=== PATIENT | female | born 1955 | race Caucasian/White ===

== ENCOUNTER 2016-06-09 01:22 | Inpatient (IN) | payer OTHER ==
[~2016-06-09] VITALS: Ht 157.5 cm; Wt 91.9 kg
[~2016-06-09 01:22] MED LIST: CARA1SUS3 PO; FOSI40TA PO; GLUCTAB PO; LANTUSP SQ; LEVO75TA3 PO; METO10TA PO; PROM25TA5 PO; ZOFR4TAB3 PO; ZOFR8TAB PO
[2016-06-09 01:24] VITALS: BP 142/73; PULSE 75; RESP 16; TEMP 97; O2SAT 96
[2016-06-09] MEDS ORDERED: LEVO75TA3 PO (01:31)
[2016-06-09] MEDS ORDERED: MULT-120 PO (01:31)
--- NOTE | 2016-06-09 02:33 | PD ---
Physical Exam Date Seen by Provider: Jun 09, 2016 Time Seen by Provider: 02:31 Narrative Patient is a transfer from [facility], 60-year-old with history of previous gastric bypass, has been having vomiting, abdominal pain, ventral hernia, found to have a small bowel obstruction with concern for possible ventral hernia strangulation. The facility had talked to Dr. Silverman who accepts patient for transfer at patient's request. Case was discussed with Dr. Silverman and he states that he will accept the patient for admission here in the hospital with possible plans for OR in the a.m. Vital signs are stable in the ER. Patient has an NG tube in place. She appears fairly comfortable currently. Data Data Last Documented VS Vital Signs Date Time Temp Pulse Resp B/P Pulse Ox O2 Delivery O2 Flow Rate FiO2 06/09/16 01:24 97.0 75 16 142/73 96 Orders Admit Order (Ed Use Only) (06/09/16 02:29) [facility] Medical Record Reviewed: Yes Supervised Visit with OCLIN: No Diagnosis Primary Impression: Small bowel obstruction Admitting Information Admitting Physician Requests: Admit Oksana Hart MD Jun 09, 2016 02:33
[2016-06-09] MEDS ORDERED: BUPIVACAINE/EPINEPHRINE 0.25% PF 30 ML VIAL ONE (05:07)
[2016-06-09 05:50] VITALS: BP 143/85; PULSE 70; RESP 16; TEMP 97.7; O2SAT 97
[2016-06-09] MEDS ORDERED: ceFAZolin INJ 1,000 MG VIAL IV ONE (06:31)
[2016-06-09] MEDS ORDERED: fentaNYL CITRATE 250 MCG/5 ML AMP ONE ×2 (07:03→07:08)
[2016-06-09] MEDS ORDERED: MIDAZOLAM HCL 2 MG/2 ML VIAL ONE (07:07)
[2016-06-09] MEDS ORDERED: SODIUM CHLORIDE 0.9% FLUSH 5 ML FLUSH IVF PRN (07:45)
[2016-06-09] MEDS ORDERED: Post-op Orders (for Pharmacy) MISC XX ONE (07:45)
[2016-06-09] MEDS ORDERED: METOCLOPRAMIDE HCL 10 MG/2 ML VIAL IVS PRN (07:45)
[2016-06-09] MEDS ORDERED: *MEPERIDINE 25 MG INJ VIAL PERIprocedural Use ONLY ONE (08:14)
[2016-06-09] MEDS ORDERED: DO NOT ADM ANY ANTICOAGULANT DRUGS XX PRN (08:30)
[2016-06-09] MEDS: SODIUM CHLOR 0.9% 1000 ML INJ 1,000 ML IV SCH ×2 (08:30→18:20)
[2016-06-09] MEDS ORDERED: *morphine SULFATE 8 MG/ML PERIprocedure ONLY ONE ×2 (08:37→10:00)
[2016-06-09] MEDS: SODIUM CHLORIDE 0.9% FLUSH 5 ML FLUSH IVF SCH ×2 (08:50→21:00)
[2016-06-09] MEDS: metroNIDAZOLE 500 MG INJ 100 ML IV SCH ×2 (09:24→18:20)
[2016-06-09] MEDS: HYDROmorphone HCL PF 1 MG/ML VIAL IV PUSH PRN ×3 (09:24→18:19)
[2016-06-09] MEDS: ONDANSETRON HCL 4 MG/2 ML VIAL IV PRN ×3 (11:29→19:41)
[2016-06-09 12:28] VITALS: BP 127/73; PULSE 80; RESP 20; TEMP 97.7; O2SAT 98
[2016-06-09] MEDS ORDERED: ONDANSETRON HCL 4 MG/2 ML VIAL IV PUSH ONE (15:14)
[2016-06-09] MEDS ORDERED: PROPOFOL 200 MG/20 ML AMP IV ONE (15:14)
[2016-06-09] MEDS ORDERED: PHENYLEPH/NS 1000 MCG/10 ML SYR IV ONE (15:14)
[2016-06-09] MEDS: ACETAMINOPHEN/HYDROcodone 325 MG/5 MG TAB PO PRN ×2 (15:30→21:28)
[2016-06-09 15:39] VITALS: O2SAT 98
[2016-06-09 16:00] VITALS: BP 108/52; PULSE 74; RESP 18; TEMP 98.2; O2SAT 91
[2016-06-09 20:00] VITALS: BP 120/66; PULSE 69; RESP 18; TEMP 96; O2SAT 92
[2016-06-10] VITALS (8 sets, daily range): BP systolic 91–145; BP diastolic 53–80; PULSE 64–83; RESP 15–18; TEMP 96–98.7; O2SAT 92–98
[2016-06-10] MEDS: metroNIDAZOLE 500 MG INJ 100 ML IV SCH (01:43)
[2016-06-10] MEDS: SODIUM CHLOR 0.9% 1000 ML INJ 1,000 ML IV SCH ×3 (06:05→20:30)
[2016-06-10] MEDS: ENOXAPARIN SODIUM 40 MG/0.4 ML SYRINGE SQ SCH (06:06)
[2016-06-10] MEDS: ACETAMINOPHEN/HYDROcodone 325 MG/5 MG TAB PO PRN ×4 (06:06→20:37)
[2016-06-10] MEDS: SODIUM CHLORIDE 0.9% FLUSH 5 ML FLUSH IVF SCH ×2 (09:00→20:30)
[2016-06-10] MEDS: HYDROmorphone HCL PF 1 MG/ML VIAL IV PUSH PRN ×2 (10:25→14:36)
[2016-06-10] MEDS: LEVOTHYROXINE SODIUM 75 MCG TAB PO SCH (14:30)
[2016-06-11] VITALS (7 sets, daily range): BP systolic 124–156; BP diastolic 62–76; PULSE 63–76; RESP 17–20; TEMP 96.9–98.8; O2SAT 95–98
[2016-06-11] MEDS: LEVOTHYROXINE SODIUM 75 MCG TAB PO SCH (05:33)
[2016-06-11] MEDS: ENOXAPARIN SODIUM 40 MG/0.4 ML SYRINGE SQ SCH (05:33)
[2016-06-11] MEDS: ACETAMINOPHEN/HYDROcodone 325 MG/5 MG TAB PO PRN ×4 (05:34→21:24)
[2016-06-11] MEDS: SODIUM CHLORIDE 0.9% FLUSH 5 ML FLUSH IVF SCH ×2 (09:00→19:50)
[2016-06-11] MEDS: SODIUM CHLOR 0.9% 1000 ML INJ 1,000 ML IV SCH ×2 (09:42→19:42)
--- NOTE | 2016-06-11 22:37 | HHI.PR ---
Subjective Subjective Notes pt comfortable no cp no sob no N/V Objective Vitals/I&O Vital Signs Date Time Temp Pulse Resp B/P Pulse Ox O2 Delivery O2 Flow Rate FiO2 06/11/16 20:00 97.9 63 20 124/68 97 06/11/16 18:18 21 06/10/16 21:30 Room Air 06/09/16 12:15 2.00 Abdomen: Post-op tenderness Extremities: Perfused Wound Wound : Wound Location: Abdomen Appearance: Clean & Dry A/P Assessment and Plan S/P lap repair of ventral hernia SBR pt doing well reg diet d/c in am in champ diet Kirk Mendez MD Jun 11, 2016 22:37
--- NOTE | 2016-06-11 22:55 | MH ---
cc: ARIEL HESTER DATE OF ADMISSION: 06/09/2016 DATE OF : 1955 REASON FOR ADMISSION Bowel obstruction. HISTORY This is a patient with a history of a Graciela-en-Y gastric bypass performed in August 2015. She had a known umbilical hernia. She was doing well until three days prior to presentation where she began experiencing abdominal pain. The patient states that the pain was in the epigastrium. It was associated with nausea and vomiting. She presented to [facility] where she was diagnosed with incarcerated ventral hernia and bowel obstruction secondary to this. Request was made to transfer to [facility] for management by myself. The patient states she has not been able to tolerate a meal for the past three days. Denies fever or chills, no chest pain. No shortness of breath. PAST MEDICAL HISTORY Significant for above. Morbid obesity, hypothyroidism. SURGICAL HISTORY: Significant for above. MEDICATIONS She is on medication at home that includes: Levothyroxine. Multivitamins. ALLERGIES: She has allergies to adhesive. SOCIAL HISTORY: She does not smoke or drink alcohol. FAMILY HISTORY Noncontributory. REVIEW OF SYSTEMS: Significant for above. All other 10 point review is negative. PHYSICAL EXAMINATION: She is laying on a stretcher in no acute distress. Pupils are equal and reactive. Trachea midline. Respirations clear. Cardiovascular: Regular. Gastrointestinal: Soft. Positive palpable mass in the umbilical partially reduced, tender to palpation. Musculoskeletal: No deformities. Neurological: Nonfocal. ASSESSMENT: This is a patient with bowel obstruction secondary to incarcerated ventral hernia. PLAN Will take the patient to the operating room for laparoscopy with reduction and repair of ventral hernia. Possible bowel resection. The risks and benefits were explained to include but not be exclusive to infection, bleeding, bowel injury, solid organ injury, technical aspects explained as well as keon and postoperative course. The patient verbalized understanding. Consent was obtained. MD MARCELO Shannon/OFELIA /10:27 PM /10:47 PM
[2016-06-12] VITALS: BP 140/63; PULSE 63; RESP 20; TEMP 96.2; O2SAT 94
[2016-06-12] MEDS: SODIUM CHLOR 0.9% 1000 ML INJ 1,000 ML IV SCH (04:30)
[2016-06-12] MEDS: ACETAMINOPHEN/HYDROcodone 325 MG/5 MG TAB PO PRN (05:33)
[2016-06-12] MEDS: LEVOTHYROXINE SODIUM 75 MCG TAB PO SCH (05:33)
[2016-06-12] MEDS: ENOXAPARIN SODIUM 40 MG/0.4 ML SYRINGE SQ SCH (05:33)
--- NOTE | 2016-06-12 07:47 | HHI.PR ---
Subjective Subjective Notes pt champ diet pain better Objective Vitals/I&O Vital Signs Date Time Temp Pulse Resp B/P Pulse Ox O2 Delivery O2 Flow Rate FiO2 06/12/16 00:00 96.2 63 20 140/63 94 06/11/16 21:00 Room Air 06/11/16 18:18 21 06/09/16 12:15 2.00 Abdomen: Post-op tenderness Extremities: Perfused Wound Wound : Wound Location: Abdomen Appearance: Clean & Dry A/P Assessment and Plan S/P lap repair of ventral hernia SBR pt doing well d/c home Kirk Mendez MD Jun 12, 2016 07:47
[2016-06-12] MEDS ORDERED: NORC5TAB PO (07:49)
[2016-06-12] MEDS ORDERED: ZOFR4TAB3 SL (07:49)
[2016-06-12 08:11] VITALS: BP 154/69; PULSE 64; RESP 20; TEMP 96.9; O2SAT 98
[2016-06-12] MEDS: SODIUM CHLORIDE 0.9% FLUSH 5 ML FLUSH IVF SCH (08:34)
--- NOTE | 2016-06-17 17:48 | MP ---
cc: KIRK MENDEZ DATE OF SURGERY: 06/09/2016 DATE OF : 1955 PREOPERATIVE DIAGNOSIS Bowel obstruction secondary to incarcerated ventral hernia. POSTOPERATIVE DIAGNOSIS Bowel obstruction secondary to incarcerated ventral hernia. PROCEDURE 1. Laparoscopic reduction with primary repair of ventral hernia. 2. Laparoscopic bowel resection. SURGEON Kirk Mendez ANESTHESIA General endotracheal. ESTIMATED BLOOD LOSS Scant. FINDINGS Incarcerated bowel within a ventral hernia with dilated bowel proximally. Adhesions of bowel to hernia sac. Dilation of Graciela limb at the gastrojejunostomy. As a result it was decided to resect the dilated segment of small bowel (candy-cane Graciela). SPECIMENS None. COMPLICATIONS None. OPERATION The patient was brought to the operating room and placed on the operating table in supine position. Bilateral sequential inflation device was placed on lower extremities. General anesthesia was instituted. The abdomen was prepped and draped sterilely. A skin incision was made in the left upper quadrant, a 5 mm port placed under direct vision and pneumoperitoneum created. Under direct vision a 5 mm left lower quadrant port and a 5 mm epigastric port was placed. Prior to placement of all ports the skin and peritoneum were anesthetized with 0.25% Marcaine with epinephrine. The patient was placed in Trendelenburg position. Findings as above. Attention was focused on the midline. Adhesions of small bowel to the abdominal wall were taken down sharply. Adhesion of small bowel to the hernia sac was sharply . Four separate stab incisions were made over the fascial defect. Using #2 Vicryl the fascial defects were approximated with four interrupted [id number] placed. The fascia came together without tension. The 5 mm port in the right upper quadrant was switched out to a 12 mm port. The dilated stump of Graciela limb was then focused on. Adhesions around it were . An endovascular stapler was then used to divide the small bowel at the gastrojejunostomy. A Harmonic scalpel was used to separate the mesentery. The specimen was removed from the abdominal cavity. The operative field was inspected and hemostasis was present. CO2 was released. The fascia at the 12 mm port site was approximated with 0 Vicryl suture. All skin incisions closed with 4-0 Monocryl. The abdominal wall was cleaned and a sterile dressing placed. The patient was awakened and taken to the recovery room. MD DODIE Shannon /10:33 PM /5:41 PM
--- NOTE | 2016-06-26 12:36 | HHI.DS ---
Discharge Summary Admission Date Jun 09, 2016 at 02:31 Discharge Date: Jun 12, 2016 Admitting Diagnosis ventral hernia/small bowel obstruction Brief History 60 year old with ventral hernia. PE at Discharge Alert and awake Resp: CTAB Cardio: RRR Abd: post op tenderness; incision c/d/i Hospital Course 60 year old female S/P lap repair of ventral hernia SBR. Her pain was controlled using oral pain medications. She was able to tolerate a regular diet. She will follow up in the office. This is a DC summary written by Marcelo FRIAS acting as a scribe for Milagro Silverman MD. Pt Condition on Discharge: Good Discharge Disposition: Discharge Home Discharge Instructions DIET: Follow Instructions for: As Tolerated, No Restrictions Activities you can perform: Shower Only-No Bath Ena Greenberg Jun 26, 2016 12:36
== END 2016-06-12 10:43 | disposition home or self-care (01) | DRG 355 ==
LOC: NEPC 01:22 → NEDA 02:31 → N07B 12:15
PROVIDERS: ADMIT Surgery; ATTEND Surgery
PROC: 0WUF4JZ Supplement Abdominal Wall with Synthetic Substitute, Percutaneous Endoscopic Approach (ICD-10-PCS; principal; 2016-06-09 06:03)
DX: K43.6 Other and unspecified ventral hernia with obstruction, without gangrene (principal); E03.9 Hypothyroidism, unspecified; Z98.84 Bariatric surgery status
CPT/HCPCS: 94150; 99285; J0690; J1170; J1650; J2175; J2250; J2270; J2370; J2405; J3010; J7030

== ENCOUNTER → 2016-08-25 | Outpatient (CLI) | payer OTHER ==
[~2016-08-25] MED LIST changes: -CARA1SUS3 PO; -FOSI40TA PO; -GLUCTAB PO; -LANTUSP SQ; -METO10TA PO; +MULT-120 PO; +NORC5TAB PO; -PROM25TA5 PO; -ZOFR4TAB3 PO; +ZOFR4TAB3 SL; -ZOFR8TAB PO
[2016-08-25 11:54] LABS: AUTOMATED NEUTROPHIL # 3.7 TH/MM3 (1.8-7.7); BASOPHIL # 0.1 TH/MM3 (0-0.2); BASOPHIL % 1.2 % (0.0-2.0); EOSINOPHIL # 0.2 TH/MM3 (0-0.4); EOSINOPHIL % 3.6 % (0.0-4.0); HEMATOCRIT 37.6 % (35.0-46.0); HEMO FLAGS DIFF FINAL; LYMPH % 28.3 % (9.0-44.0); LYMPHOCYTE # 1.8 TH/MM3 (1.0-4.8); MEAN CELL VOLUME 88.3 FL (80.0-100.0); MEAN CORPUSCULAR HEMOGLOBIN 28.7 PG (27.0-34.0); MEAN CORPUSCULAR HGB CONC 32.5 % (32.0-36.0); MONO % 7.3 % (0.0-8.0); NEUT % 59.6 % (16.0-70.0); PLATELET COUNT 360 TH/MM3 (150-450); RED BLOOD COUNT 4.26 MIL/MM3 (4.00-5.30); RED CELL DISTRIBUTION WIDTH 14.7 % (11.6-17.2); WHITE BLOOD COUNT 6.2 TH/MM3 (4.0-11.0)
[2016-08-25 12:37] LABS: ALKALINE PHOSPHATASE 73 U/L (45-117); ALT (GPT) 29 U/L (10-53); ANION GAP 9 MEQ/L (5-15); AST (GOT) 17 U/L (15-37); BLOOD UREA NITROGEN 16 MG/DL (7-18); CHLORIDE 106 MEQ/L (98-107); FERRITIN 13 NG/ML (8-252); FREE T3 2.54 PG/ML (2.18-3.98); GLOMERULAR FILTRATION RATE 90 ML/MIN (>89); GLUCOSE,FASTING 141 MG/DL (74-99); HDL CHOLESTEROL 54.8 MG/DL (40.0-60.0); LDL CHOLESTEROL 63 MG/DL (0-99); MAGNESIUM 2.1 MG/DL (1.5-2.5); POTASSIUM 4.1 MEQ/L (3.5-5.1); SODIUM (NA) 142 MEQ/L (136-145); TOTAL BILIRUBIN ADULT 0.3 MG/DL (0.2-1.0); TRANSFERRIN IRON PROFILE 291 MG/DL (200-360)
[2016-08-25 18:25] LABS: HEMOGLOBIN A1b 2.1 %; HEMOGLOBIN Ao 82.4 %; HEMOGLOBIN LA1C 2.3 %; HEMOGLOBIN P3 4.5 %
== END ==
LOC: ELAB 08:02
PROVIDERS: ATTEND Surgery
DX: E55.9 Vitamin D deficiency, unspecified (principal); D64.9 Anemia, unspecified; I10 Essential (primary) hypertension; E11.9 Type 2 diabetes mellitus without complications; Z98.84 Bariatric surgery status
CPT/HCPCS: 36415; 80053; 80061; 82306; 82607; 82728; 82746; 83036; 83540; 83550; 83735; 83970; 84100; 84439; 84443; 84481; 84590; 85025